=== PATIENT | male | born 1950 | race Caucasian/White ===

== ENCOUNTER 2018-05-11 09:18 | Emergency (ER) | payer BC ==
[~2018-05-11] VITALS: Ht 172.7 cm; Wt 63.0 kg
[2018-05-11 09:27] VITALS: TEMP 36.9; Ht 172.7 cm; Wt 63.0 kg
[2018-05-11 09:53] LABS: BASO % 0.4 %; BASO ABS # 0.02 K/uL (0-0.2); EOS % 3.8 %; EOS ABS # 0.19 K/uL (0-0.5); HEMATOCRIT 43.7 % (42-52); HEMOGLOBIN 14.7 g/dL (14.0-18.0); IG# 0.01 K/uL (0.00-0.02); LYMPH ABS # 1.61 K/uL (1.2-3.4); MEAN CELL VOLUME 94.6 fL (80-100); MEAN CORPUSCULAR HEMOGLOBIN 31.8 pg (25-34); MEAN CORPUSCULAR HGB CONC 33.6 g/dl (32-36); MEAN PLATELET VOLUME 9.7 fL (7.4-10.4); MONO % 8.2 %; MONO ABS # 0.41 K/uL (0.11-0.59); NEUT % 55.4 %; NEUT ABS # 2.79 K/uL (1.4-6.5); PLATELET COUNT 202 K/uL (130-400); RED CELL DISTRIBUTION WIDTH CV 13.1 % (11.5-14.5); RED CELL DISTRIBUTION WIDTH SD 45.5 fL (36.4-46.3); WHITE BLOOD COUNT 5.03 K/uL (4.8-10.8)
[2018-05-11 10:03] LABS: CALCIUM 9.5 mg/dl (8.5-10.1); CREATININE 0.95 mg/dl (0.60-1.40); POTASSIUM 4.2 mmol/L (3.5-5.1); TOTAL PROTEIN 8.2 gm/dl (6.4-8.2)
--- NOTE | 2018-05-11 10:20 | EMERGENCY ROOM VISIT NOTE ---
History Report prepared by Harini: Corina Rolle Under the Supervision of: Dr. Gavin Shirley M.D. First contact with patient: 09:32 Chief Complaint: CHEST PAIN Stated Complaint: CHEST PAIN History of Present Illness The patient is a 67 year old male who presents to the Emergency Room with complaints of constant sharp chest pain that began around 0830 this morning. He said that his pain felt "mechanical" in nature, as if he "pulled something." The pain began after the patient bent down to pet his dog. He states that he felt fine before petting his dog. The pain intensifies when he stretches his chin down to his chest or breathes deeply. He notes that his chest pain radiates to his upper back. He denies any difficulty walking. The patient denies SOB, nausea, vomiting, diaphoresis, fevers, dark stool, fall or trauma, pain/swelling in legs, headache, numbness, and weakness. He has not recently traveled, and he has no family history of hyperlipidemia or hypertension. The patient had a minor arrhythmia about 15 years ago after exercising. He reports that he had an EKG and stress test done at that time which was normal. He does not smoke, and he has one beer a day. The patient took 2 low dose aspirins [employer]. Source of History: patient Onset: 0830 Position: chest Quality: sharp Timing: constant Modifying Factors (Worsening): breathing, stretching Associated Symptoms: + back pain, No fevers, No headache, No diaphoresis, No SOB, No nausea, No vomiting Note: The patient also denies dark stool, recent fall or trauma, numbness, or weakness and pain/swelling in his legs. Review of Systems See HPI for pertinent positives & negatives. A total of 10 systems reviewed and were otherwise negative. Past Medical & Surgical Medical Problems: (1) Arrhythmia (2) Hernia Old medical records were reviewed. Nurse's notes were reviewed and I agree with. Denies history of diabetes, cardiac disease, hypertension, family history of cardiac disease Family History No pertinent family history stated. Social History Smoking Status: Never Smoker Alcohol Use: occasionally Marital Status: Housing Status: lives with family Occupation Status: retired Current/Historical Medications Scheduled Dust Mite Mixed Allergen Extra (Odactra 12 Sq-Hdm), 1 DROP SL @ ENT Fexofenadine Hcl (Rachelle Allergy), 1 TAB PO DAILY Multiple Vitamins W/ Minerals (Centrum Silver), 1 TAB PO DAILY Multivitamin (Multivitamin), 1 TAB PO DAILY Miscellaneous Medications Cholecalciferol (Vitamin D), 1 TAB PO Allergies Coded Allergies: Penicillins (Unverified Allergy, Unknown, HIVES, 10/21/09) Physical Exam Vital Signs Date Time Temp Pulse Resp B/P (MAP) Pulse Ox O2 Delivery O2 Flow Rate FiO2 05/11/18 11:45 74 16 118/76 99 05/11/18 10:51 60 14 134/79 100 Room Air 05/11/18 09:27 36.9 61 20 159/87 99 Room Air Physical Exam General: Non-ill appearing middle-aged male in no acute distress. HEENT: Normal cephalic atraumatic. Pupils are equal round and reactive to light. Extraocular movements are intact. Oropharynx is pink with moist mucous membranes. No swelling of the mouth lips or tongue. Neck: Supple with a midline trachea. No meningeal signs or stiffness, no JVD or bruits. No Stridor. Chest: Clear to auscultation bilaterally. No wheezes or rhonchi. No increased work of breathing. Reproducibly tender in the left anterior chest. Heart: regular rate and rhythm. Abdomen: Soft nontender, nondistended without rebound guarding or rigidity. Extremities: No cyanosis clubbing or edema. No calf tenderness or assymetry Spine/Back. Non tender to palpation. No CVA tenderness Skin: Good turgor without rashes. Neurologic exam: Cranial nerves two through 12 are intact. Motor and sensation are intact and symmetrical throughout. Medical Decision & Procedures ER Provider Diagnostic Interpretation: Radiology results as stated below per my review and radiologist interpretation: (CHEST FOR PE) ANGIO WITH FINDINGS: CTA: The heart is normal in size without pericardial effusion. Minimal degree of coronary arterial calcifications are noted. Left heart structures and thoracic aorta are not well opacified secondary to contrast bolus timing. The imaged great vessels appear to be patent. Tortuosity/redundancy of the aortic isthmus without aneurysm or dissection. The pulmonary arterial tree is opacified to the level of the segmental branches. The subsegmental branches are not well-seen secondary to respiratory motion. No pulmonary embolus identified. CT CHEST: Homogeneous appearance of the thyroid. No pathologically enlarged lymph nodes of the chest. No pneumothorax or pleural effusion. Mild dependent subsegmental basilar atelectasis. Calcification granuloma of the superior segment left lower lobe. 2 mm subpleural calcified granuloma of the anterior segment left upper lobe. Evaluation of the lung parenchyma is mildly limited secondary to respiratory motion. Central airways are patent. No acute process of the imaged upper abdomen. Soft tissues are unremarkable. Bones appear intact. IMPRESSION: 1. No acute intrathoracic abnormality identified, specifically no acute aortic pathology or evidence of pulmonary thromboembolic disease. 2. No lobar airspace consolidation or adenopathy. 3. Prior granulomatous disease. The above report was generated using voice recognition software. It may contain grammatical, syntax or spelling errors. Electronically signed by: Dayne Hermosillo M.D. 05/11/2018 11:04 AM CHEST ONE VIEW PORTABLE FINDINGS: Cardiomediastinal and hilar silhouettes are within normal limits. There is no pneumothorax, pleural effusion, focal airspace consolidation or overt pulmonary edema. Bones of the chest appear grossly intact. IMPRESSION: No acute process. The above report was generated using voice recognition software. It may contain grammatical, syntax or spelling errors. Electronically signed by: Dayne Hermosillo M.D. 05/11/2018 10:45 AM Dictated Date/Time: 05/11/2018 10:43 AM Laboratory Results 05/11/18 09:37 Red Blood Count 4.62, Mean Corpuscular Volume 94.6, Mean Corpuscular Hemoglobin 31.8, Mean Corpuscular Hemoglobin Concent 33.6, Mean Platelet Volume 9.7, Neutrophils (%) (Auto) 55.4, Lymphocytes (%) (Auto) 32.0, Monocytes (%) (Auto) 8.2, Eosinophils (%) (Auto) 3.8, Basophils (%) (Auto) 0.4, Neutrophils # (Auto) 2.79, Lymphocytes # (Auto) 1.61, Monocytes # (Auto) 0.41, Eosinophils # (Auto) 0.19, Basophils # (Auto) 0.02 05/11/18 09:37 Test 05/11/18 09:37 05/11/18 09:53 White Blood Count 5.03 K/uL (4.8-10.8) Red Blood Count 4.62 M/uL (4.7-6.1) Hemoglobin 14.7 g/dL (14.0-18.0) Hematocrit 43.7 % (42-52) Mean Corpuscular Volume 94.6 fL (80-100) Mean Corpuscular Hemoglobin 31.8 pg (25-34) Mean Corpuscular Hemoglobin Concent 33.6 g/dl (32-36) Platelet Count 202 K/uL (130-400) Mean Platelet Volume 9.7 fL (7.4-10.4) Neutrophils (%) (Auto) 55.4 % Lymphocytes (%) (Auto) 32.0 % Monocytes (%) (Auto) 8.2 % Eosinophils (%) (Auto) 3.8 % Basophils (%) (Auto) 0.4 % Neutrophils # (Auto) 2.79 K/uL (1.4-6.5) Lymphocytes # (Auto) 1.61 K/uL (1.2-3.4) Monocytes # (Auto) 0.41 K/uL (0.11-0.59) Eosinophils # (Auto) 0.19 K/uL (0-0.5) Basophils # (Auto) 0.02 K/uL (0-0.2) RDW Standard Deviation 45.5 fL (36.4-46.3) RDW Coefficient of Variation 13.1 % (11.5-14.5) Immature Granulocyte % (Auto) 0.2 % Immature Granulocyte # (Auto) 0.01 K/uL (0.00-0.02) D-Dimer 680 ug/L FEU (0-500) Anion Gap 7.0 mmol/L (3-11) Est Creatinine Clear Calc Drug Dose 69.1 ml/min Estimated GFR () 97.0 Estimated GFR (Non- 83.7 BUN/Creatinine Ratio 12.4 (10-20) Calcium Level 9.5 mg/dl (8.5-10.1) Total Bilirubin 0.7 mg/dl (0.2-1) Direct Bilirubin 0.2 mg/dl (0-0.2) Aspartate Amino Transf (AST/SGOT) 24 U/L (15-37) Alanine Aminotransferase (ALT/SGPT) 25 U/L (12-78) Alkaline Phosphatase 63 U/L (45-117) Total Protein 8.2 gm/dl (6.4-8.2) Albumin 4.0 gm/dl (3.4-5.0) Lipase 169 U/L (73-393) Bedside Troponin I < 0.030 ng/ml (0-0.045) Laboratory studies as stated above per my review. ECG Per My Interpretation Indication: chest pain Rate (beats per minute): 55 Rhythm: sinus bradycardia Findings: no acute ischemic change, no ectopy Comparison ECG Date: 08/19/2009 Change: no significant change ED Course 0932: Past medical records reviewed. The patient was evaluated in room A10, and a complete history and physical examination were performed. 1030: I reevaluated the patient. He is resting comfortably. 1118: I reevaluated the patient. He is feeling fine. 1154: Upon reevaluation, the patient is stable. I discussed the results and treatment plan with him. He verbalized agreement of the treatment plan. The patient was discharged home. Medical Decision Differential Diagnoses includes: Musculoskeletal, cardiac disease, PE, pneumothorax, electrolyte or metabolic abnormality, arrhythmia. This patient comes in as described above. He was placed in room A-10. he had an episode of chest pain that occurred after bending over it is reproducible on palpation and movement and breathing. It i atypical for cardiac disease. EKG was obtained which does not show any evidence to suggest acute coronary syndrome or arrhythmia. Cardiac biomarkers was negative with a normal troponin. Chest x-ray was unremarkable and does not show congestive heart failure, pneumonia, or pneumothorax. He has no acute electrolyte or metabolic abnormalities and nothing to suggest liver, gallbladder ,or pancreas disease. His d-dimer is mildly elevated and in light of this, I did do a chest CT after explained the risks and benefits to the patient. He agreed. The chest CT shows no evidence of PE or aortic pathology or other intrathoracic abnormalities. He did take aspirin prior to arrival. He feels good and would like to go home. I think most likely this is musculoskeletal. I offered to do another EKG and troponin he declines I think is reasonable to have close follow- up with his doctor in the next couple days and return to ER if: increasing pain , worsening of symptoms, change in symptoms, any new problems or concerns. He is happy the plan and discharged to home. Medication Reconcilliation Current Medication List: was personally reviewed by me Blood Pressure Screening Patient's blood pressure: Normal blood pressure Blood pressure disposition: Did not require urgent referral Impression Primary Impression: Left sided chest pain Additional Impression: Musculoskeletal chest pain Scribe Attestation The scribe's documentation has been prepared under my direction and personally reviewed by me in its entirety. I confirm that the note above accurately reflects all work, treatment, procedures, and medical decision making performed by me. Departure Information Dispostion Home / Self-Care Referrals Gaudencio Barnett M.D. (PCP) Forms Call Back Authorization, HOME CARE DOCUMENTATION FORM, IMPORTANT VISIT INFORMATION Patient Instructions My [facility] Additional Instructions Rest. Drink plenty of fluids. Use ibuprofen 400 mg every 6 hours as need, take with food Return if: Increasing pain, shortness of breath, worsening symptoms, fever or chills, any new problems or concerns Follow-up with your doctor this week for recheck Problem Qualifiers
[2018-05-11] MEDS ORDERED: OPTIRAY 320 IV PRN (10:45)
--- NOTE | 2018-05-11 10:46 | DIAGNOSTIC IMAGING REPORT ---
CHEST ONE VIEW PORTABLE HISTORY: 67 years-old Male CHEST PAIN acute atypical chest pain COMPARISON: Chest radiographs 08/19/2009 TECHNIQUE: Portable AP view of the chest FINDINGS: Cardiomediastinal and hilar silhouettes are within normal limits. There is no pneumothorax, pleural effusion, focal airspace consolidation or overt pulmonary edema. Bones of the chest appear grossly intact. IMPRESSION: No acute process. The above report was generated using voice recognition software. It may contain grammatical, syntax or spelling errors. Electronically signed by: Dayne Hermosillo M.D. 05/11/2018 10:45 AM Dictated Date/Time: 05/11/2018 10:43 AM
[2018-05-11] MEDS ORDERED: [UNRECOGNIZED DRUG - CODE] SL (10:48)
[2018-05-11] MEDS ORDERED: FEXO1TAB49 PO (10:48)
[2018-05-11] MEDS ORDERED: MULTCHW PO (10:48)
[2018-05-11] MEDS ORDERED: CHOL400T PO (10:48)
[2018-05-11] MEDS ORDERED: MULT-506 PO (10:48)
--- NOTE | 2018-05-11 11:05 | DIAGNOSTIC IMAGING REPORT ---
(CHEST FOR PE) ANGIO WITH CT DOSE: 268.33 mGy.cm HISTORY: 67 years-old Male with presents with acute atypical chest pain and shortness of breath. TECHNIQUE: Multiple CTA images of the chest were obtained after the intravenous administration of 98 ml Optiray 320. Coronal and sagittal MIPS were obtained from the axial data set and were submitted for review. A dose lowering technique was utilized adhering to the principles of ALARA. COMPARISON: Chest radiographs of same day and also from 08/19/2009 FINDINGS: CTA: The heart is normal in size without pericardial effusion. Minimal degree of coronary arterial calcifications are noted. Left heart structures and thoracic aorta are not well opacified secondary to contrast bolus timing. The imaged great vessels appear to be patent. Tortuosity/redundancy of the aortic isthmus without aneurysm or dissection. The pulmonary arterial tree is opacified to the level of the segmental branches. The subsegmental branches are not well-seen secondary to respiratory motion. No pulmonary embolus identified. CT CHEST: Homogeneous appearance of the thyroid. No pathologically enlarged lymph nodes of the chest. No pneumothorax or pleural effusion. Mild dependent subsegmental basilar atelectasis. Calcification granuloma of the superior segment left lower lobe. 2 mm subpleural calcified granuloma of the anterior segment left upper lobe. Evaluation of the lung parenchyma is mildly limited secondary to respiratory motion. Central airways are patent. No acute process of the imaged upper abdomen. Soft tissues are unremarkable. Bones appear intact. IMPRESSION: 1. No acute intrathoracic abnormality identified, specifically no acute aortic pathology or evidence of pulmonary thromboembolic disease. 2. No lobar airspace consolidation or adenopathy. 3. Prior granulomatous disease. The above report was generated using voice recognition software. It may contain grammatical, syntax or spelling errors. Electronically signed by: Dayne Hermosillo M.D. 05/11/2018 11:04 AM Dictated Date/Time: 05/11/2018 10:57 AM
[2018-05-11 11:45] VITALS: BP 118/76; PULSE 74; O2SAT 99
== END 2018-05-11 11:54 | disposition home or self-care (01) ==
LOC: C.EDB 09:20 → C.EDA 11:54
DX: R07.89 Other chest pain (principal); R79.1 Abnormal coagulation profile; Z86.79 Personal history of other diseases of the circulatory system; Z88.0 Allergy status to penicillin